=== PATIENT | female | born 1995 | race Caucasian/White ===

== ENCOUNTER 2016-04-21 21:52 | Emergency (ER) ==
[2016-04-21 22:06] VITALS: BP 117/63
[2016-04-21] MEDS ORDERED: FLEXERIL PO ONE (22:17)
--- NOTE | 2016-04-21 22:19 | PROVIDER DOCUMENTATION ---
HPI-Musculoskeletal Pain/Inj <DorianbalaMeaganedelmira Rodriguez - Last Filed: 04/21/16 22:16> - GENERAL Source: patient - HX OF PRESENT ILLNESS-MUSKULOSKELTAL Quality of Pain: reports: aching Severity in ED: mild Onset/Duration: 4-6 hours ago Timing: still present, intermittent Modifying Factors: improves with: nothing Any recent injury?: Yes (twisted ) Similar Symptoms Previously?: No Recently seen or treated by another doctor?: No - FALL INJURY Location of Pain/Injury: reports: none - LOWER EXTREMITY PAIN/INJURY Lower Extremities Pain: ankle: right (pain ) Context / Method of Injury: reports: twisted Associated Symptoms: reports: weakness in legs/feet (R). denies: loss of bladder control, loss of bowel control, lower back pain, muscle spasms, numbness in legs/feet, sensory/motor loss, tingling in legs/feet <Negra Swann - Last Filed: 04/21/16 22:28> - GENERAL Chief Complaint: Extremity Injury Stated Complaint: SPRAIN ANKEL Time Seen by Provider: 04/21/16 22:07 - HX OF PRESENT ILLNESS-MUSKULOSKELTAL Nature of Presenting Problem: Pt is 20 y/o F presents to the ED with R ankle pain. Pt states running down driveway and stepping off side and twisted R ankle. Pt denies falling. Pt denies LOC. Pt states Tylenol and Motrin have no helped. (Negra Swann) Review of Systems - Adult - REVIEW OF SYSTEMS - ADULT Constitutional: reports: no symptoms reported Eyes: reports: no symptoms reported Ears, Nose, Mouth & Throat: reports: no symptoms reported Cardiovascular: reports: no symptoms reported Respiratory: reports: no symptoms reported Gastrointestinal: reports: no symptoms reported Genitourinary: reports: no symptoms reported Musculoskeletal: reports: other (R ankle). denies: bone pain, joint pain, neck pain Integumentary: reports: no symptoms reported Neurological: reports: no symptoms reported Psychiatric: reports: no symptoms reported Endocrine: reports: no symptoms reported Hematologic/Lymphatic: reports: no symptoms reported Allergic/Immunologic: reports: no symptoms reported All Other Systems: Reviewed and Negative <Negra Swann - Last Filed: 04/21/16 22:28> Past History - Adult - PAST MEDICAL HISTORY-ADULT Review of Records: reports: Nursing Assessment Review, Medications Reviewed, Social history reviewed & non-contributory. Major Childhood Illnesses: reports: denies history Cardiovascular: reports: denies history Respiratory: reports: denies history Gastrointestinal: reports: denies history Obstetrical/Gynecological: reports: ovarian cysts Genitourinary: reports: denies history Musculoskeletal: reports: denies history Neurological: reports: denies history Endocrine/Immune: reports: denies history Other Conditions: reports: denies history - PRIOR SURGERIES/PROCEDURES Surgical/Procedure History: reports: reviewed, not pertinent - IMMUNIZATION STATUS Childhood Immunizations: See Nurse Assessment Flu Vaccine: See Nurse Assessment - FAMILY HISTORY Family History: reviewed, not pertinent - SOCIAL HISTORY Smoking: denies Substance Use: alcohol Alcohol Use Frequency: occasionally Number of drinks per typical drinking period:: 2 drinks Living Situation: family <Negra Swann - Last Filed: 04/21/16 22:28> Physical Exam-Injury Related - Physical Exam-Injury Related Initial Vital Signs Reviewed: Yes General Appearance: appears well, alert, no apparent distress Eyes: PERRL/EOMI, pink conjunctivae, fundi clear, no AV nicking Head, Ears, Nose, Mouth & Throat: normocephalic/atraumatic, moist mucous membranes, normal ENT inspection, TMs normal, pharynx normal Neck: non-tender, full range of motion, supple, normal inspection Respiratory: chest non-tender, lungs clear, normal breath sounds, no pleuratic chest pain, no respiratory distress Cardiovascular: normal peripheral pulses, regular rate, rhythm, no edema, no gallop, no JVD, no murmur Abdominal Exam: normal bowel sounds, non tender, soft, no organomegaly, no pulsatile mass Lymphatic: no adenopathy Back Exam: normal inspection, no CVA tenderness, no vertebral tenderness Extremity: normal range of motion, no pedal edema, normal capillary refill, tenderness (ATF) Integumentary: normal color, warm/dry Neurologic: grossly normal Psych/Mental Status: normal mood/affect, oriented x 3 <Negra Swann - Last Filed: 04/21/16 22:28> Progress <Meagan Dotson - Last Filed: 04/21/16 22:16> - XRAY 1 XRAY: Right XRAY Study: Ankle Impression: Normal XRAY Interpretation: normal per JOSE Puri <Negra Swann - Last Filed: 04/21/16 22:28> - PLAN OF CARE/RESULTS Progress/Plan/Lab Results: Orders Category Date Time Status Crutches DIRECTED Care 04/21/16 22:17 Active Stirrup Ankle Splint DIRECTED Care 04/21/16 22:17 Active ANKLE COMPLETE RIGHT [RAD] Stat Exams 04/21/16 22:07 Taken Cyclobenzaprine [Flexeril] Med 04/21/16 22:17 Discontinued 10 mg PO NOW ONE Vital Signs - 24 hr 04/21/16 22:03 Temperature 98.2 F Pulse Rate 66 Respiratory 18 Rate Blood Pressure 117/63 O2 Sat by Pulse 100 Oximetry (Negra Swann) Procedures - SPLINTING Right Lower Extremity Other Location: R ankle Pre-Fabricated Splint: Velcro Splint Application (Hand-Made): Stir-Up Applied By: ED Nurse Assisted By: specialist physicians <Negra Swann - Last Filed: 04/21/16 22:28> Departure - Departure Time of Disposition Order: 22:16 Certified Medical Emergency: Emergent <Meagan Dotson - Last Filed: 04/21/16 22:16> - Departure Time of Disposition Order: 22:21 Certified Medical Emergency: Emergent <Negra Swann - Last Filed: 04/21/16 22:28> - Departure DIAGNOSIS: Right ankle sprain Qualifiers: Encounter type: initial encounter Involved ligament of ankle: tibiofibular ligament Qualified Code(s): S93.431A - Sprain of tibiofibular ligament of right ankle, initial encounter Disposition: HOME 01 Condition: Stable Additional Instructions: Follow up with [facility] ED Follow Up Instructions: You have been treated by a care provider in the Emergency Department. These instructions are being provided to you so you can have an understanding of how to care for yourself upon discharge. Upon discharge from the Emergency Department, you are responsible for making arrangements for follow-up care by a physician of your choice. Take all prescribed medications as directed. Return to the Emergency Department immediately for any new or worsening symptoms. You may call the Physician Referral phone number at [phone] to obtain a list of Physicians who are taking new patients. Prescriptions: Acetaminophen/Diphenhydramine [Percogesic 325-12.5 mg Tablet] 1 each PO Q6-8H PRN PRN #30 tablet PRN Reason: Pain Methocarbamol [Robaxin] 500 mg PO BID #14 tablet Referrals: None,PCP [Primary Care Provider] - Lico Leslie MD [STAFF PHYSICIAN] - Forms: Return to School/Parent Work Instructions: Ankle Sprain, [id number], Acetaminophen; Diphenhydramine oral caplet, capsule, or tablet, Methocarbamol tablets Attestation - Scribe Verification/Attestation Scribe:: Negra Swann Acting as Scribe for:: Meagan Dotson Scribe documention review:: This chart was documented by a scribe and accurately reflects the service the provider performed and the decisions made by the provider. <Negra Swann - Last Filed: 04/21/16 22:28> Physician Attestation
--- NOTE | 2016-04-22 06:37 | Diag Imaging Result Document ---
PROCEDURE NAME: ANKLE COMPLETE RIGHT - 04/21/2016 RIGHT ANKLE, THREE VIEWS: FINDINGS: No fracture. No dislocation. No other bony abnormality. IMPRESSION: Negative exam.
== END 2016-04-21 22:32 | disposition home or self-care (01) ==
LOC: P.ED 21:52
DX: S93.431A Sprain of tibiofibular ligament of right ankle, initial encounter (principal); M25.571 Pain in right ankle and joints of right foot; M62.81 Muscle weakness (generalized); Z87.42 Personal history of other diseases of the female genital tract; X58.XXXA Exposure to other specified factors, initial encounter
CPT/HCPCS: 99283